=== PATIENT | female | born 1965 | race Caucasian/White ===

== ENCOUNTER 2018-03-11 12:08 | Emergency (ER) | payer BC, SELFPAY | END 2018-03-11 13:04 | disposition home or self-care (01) | LOC: SCSER 12:08 | DX: K12.2 Cellulitis and abscess of mouth (principal); E11.9 Type 2 diabetes mellitus without complications; J45.909 Unspecified asthma, uncomplicated; F32.9 Major depressive disorder, single episode, unspecified; Z87.891 Personal history of nicotine dependence; Z79.899 Other long term (current) drug therapy | CPT/HCPCS: 99282 ==

== ENCOUNTER 2018-03-12 23:38 | Emergency (ER) | payer BC ==
[2018-03-12] MEDS ORDERED: Lidocaine 1% w/Epinephrine 1:100K 20 ML VIAL ONE (23:47)
[2018-03-13] MEDS ORDERED: Adacel (T-DAP) 0.5 ML SYRINGE ONE (00:17)
== END 2018-03-13 00:42 | disposition home or self-care (01) ==
LOC: SCSER 23:38
DX: L02.11 Cutaneous abscess of neck (principal); E11.9 Type 2 diabetes mellitus without complications; J45.909 Unspecified asthma, uncomplicated; F32.9 Major depressive disorder, single episode, unspecified; Z87.891 Personal history of nicotine dependence
CPT/HCPCS: 10060; 90471; 90715; J2001